=== PATIENT | female | born 1980 | race Caucasian/White ===

== ENCOUNTER 2017-09-08 15:03 | Emergency (ER) | payer MEDICAID ==
[~2017-09-08] VITALS: Ht 167.6 cm; Wt 61.2 kg
--- NOTE | 2017-09-08 15:10 | NUR ---
PT CAME IN [facility] STRIKING OUT RECEIVED ORDERS FROM DR JACOME TO PUT ON RESTRAINTS
[2017-09-08] MEDS ORDERED: HALOPERIDOL LACTATE INJ 5 MG/ML VIAL ONE (15:13)
--- NOTE | 2017-09-08 15:14 | NUR ---
BBRA [id number] FROM [facility] FOR BIZARRE BEHAVIOR: PER EMS PT TAKING OFF CLOTHES. PLACED ON MONITOR. AWAITING MD ORDER
[2017-09-08] MEDS ORDERED: HALOPERIDOL LACTATE INJ 5 MG/ML VIAL IVP ONE (15:30)
[2017-09-08] MEDS ORDERED: IV NS 0.9% 1,000 ML BAG IV ONE (15:30)
[2017-09-08 15:31] LABS: BASOPHILS # (AUTO) 0.1 /CMM (0.0-0.2); BASOPHILS % (AUTO) 0.9 % (0.0-2.0); EOSINOPHILS # (AUTO) 0.1 /CMM (0.0-0.7); EOSINOPHILS % (AUTO) 1.4 % (0.0-6.0); HEMATOCRIT 38 % (33-45); HEMOGLOBIN 12.4 g/dL (11.5-14.8); LYMPHOCYTES # (AUTO) 2.7 /CMM (0.8-4.8); LYMPHOCYTES % (AUTO) 25.5 % (20.0-44.0); MEAN CORPUSCULAR HEMOGLOBIN 28 PG (26.0-33.0); MEAN CORPUSCULAR HGB CONC 33 g/dl (31.0-36.0); MEAN CORPUSCULAR VOLUME 84 fL (82-100); MONOCYTES # (AUTO) 0.9 /CMM (0.1-1.30); MONOCYTES % (AUTO) 8.8 % (2.0-12.0); NEUTROPHILS # (AUTO) 6.7 /CMM (1.8-8.9); NEUTROPHILS % (AUTO) 63.4 % (43.0-81.0); PLATELET COUNT (AUTO) 325 /CMM (150-450); RED BLOOD CELL COUNT(AUTO) 4.48 MIL/uL (4.0-5.2); WHITE BLOOD COUNT (AUTO) 10.5 K/uL (4.3-11.0)
--- NOTE | 2017-09-08 15:32 | NUR ---
RAC #20 IV ACCESS. BLOOD SAMPLE COLLECTED SENT TO LAB
[2017-09-08 15:40] LABS: CALCIUM, SERUM 10.4 mg/dL (8.5-10.1); CARBON DIOXIDE 26 mmol/L (21-32); CHLORIDE 104 mmol/L (98-107); CREATININE 0.7 mg/dL (0.6-1.3); GLUCOSE 86 mg/dL (74-106); POTASSIUM 3.6 mmol/L (3.5-5.1); SODIUM SERUM 141 mmol/L (136-145); UREA NITROGEN, BLOOD 22 mg/dL (7-18)
--- NOTE | 2017-09-08 15:41 | NUR ---
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
[2017-09-08 15:48] LABS: TROPONIN I < 0.017 ng/mL (0.00-0.056)
[2017-09-08 15:57] LABS: ACETAMINOPHEN 0 ug/ml (10-30); ALANINE AMINOTRANSFERASE 79 U/L (12-78); ALCOHOL, BLOOD 4 mg/dL (0-0); ALKALINE PHOSPHATASE 86 U/L (46-116); ASPARTATE AMINOTRANSFERASE 67 U/L (15-37); BILIRUBIN,DIRECT 0.1 mg/dL (0.0-0.2); BILIRUBIN,TOTAL 0.6 mg/dL (0.2-1.0); SALICYLATE 2.3 mg/dL (2.8-20.0); TOTAL PROTEIN, SERUM 8.2 g/dL (6.4-8.2)
--- NOTE | 2017-09-08 16:27 | NUR ---
URINE SAMPLE COLLECTED SENT TO LAB
[2017-09-08 16:54] LABS: THYROID STIMULATING HORMONE 0.663 uIU/mL (0.358-3.74)
[2017-09-08] MEDS ORDERED: IBUPROFEN 600 MG TABLET PO ONE (21:30)
[2017-09-08] MEDS ORDERED: MECLIZINE HCL 25 MG TABLET PO ONE (21:30)
--- NOTE | 2017-09-08 23:46 | NUR ---
GAVE REPORT TO JANIYA MEJIA FOR CYNDY
--- NOTE | 2017-09-09 01:10 | NUR ---
PATIENT IS RESTING IN ER BED, NO DISTRESS NOTED. REMOVED LEFT UPPER EXTREMITY RESTRAINT, ONLY RESTRAINT LEFT ON PT IS RIGHT UPPER EXTREMITY. 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 WILL CONTINUE TO MONITOR VITAL SIGNS WITHIN NORMAL LIMITS.
--- NOTE | 2017-09-09 03:10 | NUR ---
PATIENT IS RESTING IN ER BED, NO DISTRESS NOTED. 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 WILL CONTINUE TO MONITOR VITAL SIGNS WITHIN NORMAL LIMITS.
--- NOTE | 2017-09-09 09:04 | NUR ---
compliance aide paged
--- NOTE | 2017-09-09 10:06 | NUR ---
Social service consult requested by ED CRN Josselin for referrals. Pt. is a 36 year old female who was brought to [facility] ED by KATIE yesterday for bizarre behaviors. SW met with pt. bedside. Pt. is alert and oriented x 3. Pt. appears disheveled and hyperverbal. Pt. informed SW that she is homeless and needs SW to call her adopted mother Claire to inquire if she can reside with her or receive assistance. RONNA called Claire who informed SW that she is unable to assist Kang at this time. Pt. has been in and out of sober livings with assistance from Claire. RONNA relayed message to the pt. Pt. then stated to SW she is extremely depressed and needs help with her psychiatric medication and would like to go to a psychiatric hospital. RONNA updated ED physician who will contact crisis team for psychiatric evaluation. Crisis team was called last night, however pt. was too altered for the clinician to assess pt. SW is available, if needed.
--- NOTE | 2017-09-09 11:00 | NUR ---
PT IS RESTING. AWAKE. TRACII RN AT BEDSIDE TALKING TO PT. DENIES SI/HI. STABLE VITALS. WILL CONT TO MONITOR.
--- NOTE | 2017-09-09 11:35 | NUR ---
Patient discharged to home in stable condition. Written and verbal after care instructions given. Patient verbalizes understanding of instruction.IV removed. Catheter intact and site benign. Pressure and 4x4 applied to site. No bleeding noted.
--- NOTE | 2017-09-09 12:07 | NUR ---
RONNA received a call from clinician JACKIE Herron informing SW that pt. is not suicidal and if SW can give pt. list of Transitional housing and sober livings. RONNA met with pt. and gave her the list of Transitional housing and sober livings. Pt. requested for a bus token. RONNA gave pt's RN [employer] bus token to give to the pt.
[2017-09-09 16:15] VITALS: BP 125/64
== END 2017-09-09 11:35 | disposition home or self-care (01) ==
LOC: ER 15:05 → EDBD 15:05 → ER 09-09 11:35
DX: F15.10 Other stimulant abuse, uncomplicated (principal); R45.1 Restlessness and agitation
CPT/HCPCS: 36415; 80048; 80076; 80305; 80329; 84443; 84484; 84703; 85025; 93005; 96361; 96374; 99291; A4606; G0480 ×2; J1630; J7030; Z7610